=== PATIENT | male | born 1975 | race Caucasian/White ===

== ENCOUNTER 2017-06-15 16:16 | Emergency (ER) | payer OTHER ==
[~2017-06-15] VITALS: Ht 172.7 cm; Wt 77.1 kg
[~2017-06-15 16:16] MED LIST: ALBU.083IS IH; ALBU4 PO; ALBU8HFA2 INH; ALBU90OI INH; ALPR.25 PO; BUPR100 PO; BUPR150ER PO; BUPR75 PO; CHLO25 PO; CLIN300 PO; CLON.2 PO; DIPH50 PO; DIVA500EC PO; DIVA500ER PO; DOXY100 PO; ENOX40I PO; FAMO20 PO; HYDACE5 PO; IBUP800 PO; LISHYD2012 PO; Naprosyn500 MG PO; Norco 5-325 Ta1 EACH PO; OXYACE5T PO; PRED20 PO; PROM25 PO; QVAR7.3 G1; QVAR7.3 G1 INH; Vistaril25 MG PO
[2017-07-13] MEDS ORDERED: HYDR1TAB94 PO (08:36)
== END 2017-06-15 17:48 | disposition home or self-care (01) ==
LOC: ER 16:16
DX: S70.02XA Contusion of left hip, initial encounter (principal); S90.02XA Contusion of left ankle, initial encounter; Z88.5 Allergy status to narcotic agent; Z79.899 Other long term (current) drug therapy; I10 Essential (primary) hypertension; Z87.891 Personal history of nicotine dependence; V13.4XXA Pedal cycle driver injured in collision with car, pick-up truck or van in traffic accident, initial encounter
CPT/HCPCS: 73502; 73610; 99284

== ENCOUNTER 2017-06-19 17:47 | Emergency (ER) | payer OTHER ==
[~2017-06-19] VITALS: Ht 147.3 cm; Wt 160.0 kg
[2017-06-19] MEDS ORDERED: IBUP800 PO (18:56)
[2017-07-13] MEDS ORDERED: HYDR1TAB94 PO (08:36)
== END 2017-06-19 19:14 | disposition home or self-care (01) ==
LOC: ER 17:47
DX: S62.311A Displaced fracture of base of second metacarpal bone, left hand, initial encounter for closed fracture (principal); I10 Essential (primary) hypertension; Z88.5 Allergy status to narcotic agent; Z87.891 Personal history of nicotine dependence; Y04.2XXA Assault by strike against or bumped into by another person, initial encounter
CPT/HCPCS: 29125; 71046; 73130; 73610; 99283

== ENCOUNTER 2017-06-26 12:07 | Day surgery (SDC) | payer OTHER ==
[~2017-06-26] VITALS: Ht 175.3 cm; Wt 85.1 kg
[2017-07-13] MEDS ORDERED: HYDR1TAB94 PO (08:36)
== END 2017-06-26 17:49 | disposition home or self-care (01) ==
LOC: ORSCSDS 12:07
PROVIDERS: Orthopaedic Surgery
PROC: 0PSQ04Z Reposition Left Metacarpal with Internal Fixation Device, Open Approach (ICD-10-PCS; principal; 2017-06-26 14:45)
DX: S62.331A Displaced fracture of neck of second metacarpal bone, left hand, initial encounter for closed fracture (principal); I10 Essential (primary) hypertension; J45.909 Unspecified asthma, uncomplicated; F17.210 Nicotine dependence, cigarettes, uncomplicated; Z79.899 Other long term (current) drug therapy
CPT/HCPCS: J0690; J1100; J3010; J7120

== ENCOUNTER 2017-07-07 12:02 | Emergency (ER) | payer OTHER ==
[~2017-07-07] VITALS: Ht 175.3 cm; Wt 83.9 kg
[2017-07-07] MEDS ORDERED: Ventolin/Prove6.7 GM INH (12:16)
[2017-07-07] MEDS ORDERED: IBUP800 PO (12:17)
[2017-07-07] MEDS ORDERED: Norco 7.5-3251 EACH PO (13:40)
[2017-07-07] MEDS ORDERED: Zofran Odt4 MG SL (13:40)
[2017-07-07] MEDS ORDERED: Crutch1 EACH UD (13:42)
[2017-07-13] MEDS ORDERED: HYDR1TAB94 PO (08:36)
== END 2017-07-07 14:18 | disposition home or self-care (01) ==
LOC: ER 12:02
DX: S82.841A Displaced bimalleolar fracture of right lower leg, initial encounter for closed fracture (principal); I10 Essential (primary) hypertension; F17.200 Nicotine dependence, unspecified, uncomplicated; Z88.5 Allergy status to narcotic agent; X50.1XXA Overexertion from prolonged static or awkward postures, initial encounter; Y93.72 Activity, wrestling
CPT/HCPCS: 27810; 73610; 96372; 99284; J1170

== ENCOUNTER 2017-07-17 09:45 | Day surgery (SDC) | payer OTHER ==
[~2017-07-17] VITALS: Ht 172.7 cm; Wt 79.1 kg
[~2017-07-17 09:45] MED LIST changes: +Crutch1 EACH UD; +HYDR1TAB94 PO; +Norco 7.5-3251 EACH PO; +Ventolin/Prove6.7 GM INH; +Zofran Odt4 MG SL
== END 2017-07-17 14:36 | disposition home or self-care (01) ==
LOC: ORSCSDS 09:45
PROVIDERS: Orthopaedic Surgery
PROC: 0QSJ04Z Reposition Right Fibula with Internal Fixation Device, Open Approach (ICD-10-PCS; principal; 2017-07-17 11:15)
DX: S82.61XA Displaced fracture of lateral malleolus of right fibula, initial encounter for closed fracture (principal); F17.210 Nicotine dependence, cigarettes, uncomplicated
CPT/HCPCS: C1713; J0171; J0690; J2250; J2405; J3010

== ENCOUNTER 2018-04-05 21:56 | Emergency (ER) | payer OTHER ==
[~2018-04-05] VITALS: Ht 172.7 cm; Wt 86.2 kg
[2018-04-05] MEDS ORDERED: ERYT1OIN LEFTEYE (22:40)
[2018-04-05] MEDS ORDERED: ACULAR5 ML TOP (22:40)
== END 2018-04-05 23:11 | disposition home or self-care (01) ==
LOC: ER 21:56
DX: S05.02XA Injury of conjunctiva and corneal abrasion without foreign body, left eye, initial encounter (principal); I10 Essential (primary) hypertension; F17.200 Nicotine dependence, unspecified, uncomplicated; Z88.5 Allergy status to narcotic agent; X58.XXXA Exposure to other specified factors, initial encounter
CPT/HCPCS: 99283

== ENCOUNTER 2018-11-26 12:36 | Day surgery (SDC) | payer OTHER ==
[~2018-11-26] VITALS: Ht 172.7 cm; Wt 85.7 kg
[~2018-11-26 12:36] MED LIST changes: +ACULAR5 ML TOP; +ERYT1OIN LEFTEYE
--- NOTE | 2018-11-26 17:48 | NUR ---
Patient up to Ambulate independently. Gait steady. Discharge instructions reviewed with patient. Patient verbalizes understanding. Copy given to patient to take home. REVIEWED WITH MOTHER AND PT AFTER PT GIVES PERMISSION Patient States Post-Procedure ride home has been arranged. Discharged via wheelchair to private car for ride home.
== END 2018-11-26 18:20 | disposition home or self-care (01) ==
LOC: ER 12:36 → SURS 12:37 → ER 12:37 → ORSCMMR 14:25 → SURS 18:20
PROVIDERS: Orthopaedic Surgery
PROC: 0HQGXZZ Repair Left Hand Skin, External Approach (ICD-10-PCS; principal; 2018-11-26 14:30)
DX: S61.412A Laceration without foreign body of left hand, initial encounter (principal); S61.213A Laceration without foreign body of left middle finger without damage to nail, initial encounter; S61.215A Laceration without foreign body of left ring finger without damage to nail, initial encounter; I10 Essential (primary) hypertension; F17.210 Nicotine dependence, cigarettes, uncomplicated; J45.909 Unspecified asthma, uncomplicated; Z79.899 Other long term (current) drug therapy; Z88.5 Allergy status to narcotic agent; W29.3XXA Contact with powered garden and outdoor hand tools and machinery, initial encounter
CPT/HCPCS: 36415; 73130; 96365; 96375; 99285-25; J0330; J0690; J1100; J1170; J1885; J2250; J2405; J2704; J3010; J7120

== ENCOUNTER 2023-12-14 23:19 | Emergency (ER) | payer OTHER ==
[~2023-12-14] VITALS: Ht 175.3 cm; Wt 113.4 kg
[~2023-12-14 23:19] MED LIST changes: +ERYT.5TO RIGHTEYE
[2023-12-15] MEDS ORDERED: Diphth,Pertuss(Acell),Tet Vac 0.5 ML VIAL IM ONE (00:05)
[2023-12-15] MEDS ORDERED: Ketorolac Tromethamine 15mg Vial IM ONE (00:25)
[2023-12-15] MEDS ORDERED: ACET500 PO (01:55)
[2023-12-15] MEDS ORDERED: IBUP600 PO (01:55)
[2023-12-15 02:00] VITALS: BP 125/78
== END 2023-12-15 02:28 | disposition home or self-care (01) ==
LOC: ER 23:19
DX: S50.312A Abrasion of left elbow, initial encounter (principal); S59.912A Unspecified injury of left forearm, initial encounter; M25.552 Pain in left hip; M79.605 Pain in left leg; I10 Essential (primary) hypertension; F17.210 Nicotine dependence, cigarettes, uncomplicated; W18.30XA Fall on same level, unspecified, initial encounter
CPT/HCPCS: 73070; 73090; 73100; 73502; 73590; 90471; 90715; 96372; 99284-25; J1885

== ENCOUNTER 2024-02-12 14:10 | Emergency (ER) | payer OTHER ==
[~2024-02-12] VITALS: Ht 172.7 cm; Wt 107.0 kg
[~2024-02-12 14:10] MED LIST changes: +ACET500 PO; +IBUP600 PO
[2024-02-12 14:53] VITALS: BP 163/116
[2024-02-12] MEDS ORDERED: Acetaminophen 325 MG TABLET PO ONE (14:55)
[2024-02-12] MEDS ORDERED: Ketorolac Tromethamine 15mg Vial IM ONE (15:10)
== END 2024-02-12 16:39 | disposition home or self-care (01) ==
LOC: ER 14:10
DX: S69.91XA Unspecified injury of right wrist, hand and finger(s), initial encounter (principal); R07.81 Pleurodynia; W37.8XXA Explosion and rupture of other pressurized tire, pipe or hose, initial encounter; I10 Essential (primary) hypertension; F17.210 Nicotine dependence, cigarettes, uncomplicated
CPT/HCPCS: 29125; 71046; 73110; 73130; 96372-59; 99283-25; A9270; J1885

== ENCOUNTER 2024-07-22 13:23 | Inpatient (IN) | payer OTHER ==
[~2024-07-22] VITALS: Ht 172.7 cm; Wt 94.7 kg
[2024-07-22 14:18] LABS: BASOPHILS ABSOLUTE AUTO 0.05 K/mm3 (0.00-0.23); BASOPHILS PERCENT AUTO 1 % (0-2); EOSINOPHILS ABSOLUTE AUTO 0.09 K/mm3 (0.00-0.68); EOSINOPHILS PERCENT AUTO 1 % (0-6); Hematocrit 44.9 % (37.0-53.0); IMMATURE GRAN ABSOLUTE AUTO 0.04 K/mm3 (0.00-0.10); IMMATURE GRAN PERCENT AUTO 0 % (0-1); LYMPHOCYTES ABSOLUTE AUTO 1.68 K/mm3 (0.84-5.20); LYMPHOCYTES PERCENT AUTO 16 % (21-46); MONOCYTES ABSOLUTE AUTO 1.07 K/mm3 (0.16-1.47); MONOCYTES PERCENT AUTO 10 % (4-13); Mean Corpuscular HGB 31.7 pg (26.0-34.0); Mean Corpuscular HGB Conc 35.6 g/dL (31.5-36.5); Mean Corpuscular Volume 89 fL (80-100); Mean Platelet Volume 9.8 fL (9.1-12.4); NEUTROPHILS ABSOLUTE AUTO 7.55 K/mm3 (1.96-9.15); NEUTROPHILS PERCENT AUTO 72 % (41-73); Platelet Count 149 K/mm3 (150-400); RDW Coefficient Variation 13.8 % (11.7-14.2); RDW Standard Deviation 44.3 fL (35.1-46.3); Red Blood Cell Count 5.04 M/mm3 (4.30-5.90); White Blood Cell Count 10.48 K/mm3 (4.00-11.30)
[2024-07-22 14:31] LABS: Albumin, Blood 3.1 g/dL (3.4-5.0); Albumin/Globulin Ratio 0.9 (0.8-1.8); Bilirubin, Total 0.5 mg/dL (0.1-1.0); Bun/Creatinine Ratio 22.2 (12.0-20.0); Calcium, Blood 8.1 mg/dL (8.5-10.1); Creatinine, Blood 0.81 mg/dL (0.60-1.20); Globulin, Blood 3.5 g/dL (2.2-4.0); Potassium, Blood 3.7 mmol/L (3.5-5.5); Total Protein, Blood 6.6 g/dL (6.4-8.2)
[2024-07-22 16:05] LABS: International Normalized Ratio 0.99; Prothrombin Time Results 10.6 Sec (9.7-11.5)
[2024-07-22] MEDS ORDERED: Heparin Sodium,Porcine/0.5 NS 500 ML IV SCH (17:20)
[2024-07-22] MEDS ORDERED: Heparin Sodium 5000 Units/ML 1ML MDV IV ONE (17:20)
[2024-07-22] MEDS ORDERED: Ondansetron HCl 2 MG / ML 2ML Vial IV PRN (18:00)
[2024-07-22] MEDS ORDERED: Enoxaparin 100 MG/ML 1ML SYR SC SCH (18:00)
[2024-07-22 21:23] VITALS: BP 143/91
--- NOTE | 2024-07-22 23:23 | NUR ---
CALL FROM LAB TROPONIN IS NOW [phone] UP SINCE LAST DRAW. PROVIDER EDUCATIONAL AIDE NOTIFIED. PATIENT IS ASYMPTOMATIC AT THIS TIME. VSS
[2024-07-23] VITALS (7 sets, daily range): BP systolic 110–142; BP diastolic 82–103
[2024-07-23] MEDS ORDERED: Dose Adjust by Pharmacy XX STA ×2 (02:16→10:14)
[2024-07-23] MEDS ORDERED: Heparin Sodium 5000 Units/ML 1ML MDV IV ONE ×3 (02:20→18:50)
--- NOTE | 2024-07-23 05:11 | NUR ---
MR CHAU IS A NEW ADMISSION TO [facility]. CAME TO FLOOR FROM ER. COMES IN WITH PE AND DVT. PATIENT IS ON A HEPARIN DRIP. PATIENT STATES HE FEELS CHEST HEAVINESS WITH BREATHING. TROPONINS TREADING UP ALL NIGHT. GREENHOUSE SUPERINTENDENT NIGHT PROVIODER AWARE. TROPONINS TO BE DRAWN EVERY TWO HOURS. PATIENT HAS SLEPT MOST OF NIGHT EXCECPT FOR INTERRUPTIONS FROM STAFF. REMAINS ON ROOM AIR. CONTINUE CARE
[2024-07-23 05:46] LABS: Hematocrit 48.2 % (37.0-53.0); Hemoglobin 16.6 g/dL (13.5-17.5); Mean Corpuscular HGB 30.7 pg (26.0-34.0); Mean Corpuscular HGB Conc 34.4 g/dL (31.5-36.5); Mean Corpuscular Volume 89 fL (80-100); Mean Platelet Volume 10.3 fL (9.1-12.4); Platelet Count 122 K/mm3 (150-400); RDW Coefficient Variation 13.8 % (11.7-14.2); RDW Standard Deviation 44.6 fL (35.1-46.3); White Blood Cell Count 9.73 K/mm3 (4.00-11.30)
[2024-07-23 06:13] LABS: Alanine Aminotransfer (ALT/SGP 112 U/L (12-78); Albumin, Blood 3.1 g/dL (3.4-5.0); Albumin/Globulin Ratio 0.9 (0.8-1.8); Alk Phos 125 U/L (50-136); Anion Gap 8 mmol/L (3-11); Aspartate Aminotrans (AST/SGOT 131 U/L (12-37); Bilirubin, Total 0.9 mg/dL (0.1-1.0); Blood Urea Nitrogen 12 mg/dL (8-24); Bun/Creatinine Ratio 13.2 (12.0-20.0); CHOL/HDL RATIO 3.3; CO2, Blood 27 mmol/L (21-32); Calcium, Blood 8.2 mg/dL (8.5-10.1); Chloride, Blood 105 mmol/L (98-108); Cholesterol 201 mg/dL (50-200); Creatinine, Blood 0.91 mg/dL (0.60-1.20); Globulin, Blood 3.4 g/dL (2.2-4.0); Glomerular Filtration Rate 105 (60-); Glucose, Blood 98 mg/dL (70-99); HDL Cholesterol 61 mg/dL (>39); LDL/HDL RATIO 1.8; Low Density Lipoprotein Chol 110 mg/dL (0-110); Magnesium, Blood 1.9 mg/dL (1.6-2.4); Potassium, Blood 3.7 mmol/L (3.5-5.5); Sodium, Blood 136 mmol/L (136-145); Total Protein, Blood 6.5 g/dL (6.4-8.2); Triglycerides 149 mg/dL (30-160); Very Low Density Lipoprot Chol 29 mg/dL (6-32)
[2024-07-23 09:14] LABS: Anti-Xa UFH, PHA Monitoring 0.42 IU/mL
[2024-07-23 13:01] LABS: U Amphetamine Screen DETECTED; U Barbituate Screen Not Detected; U Benzodiazapine Screen Not Detected; U Buprenorphine Screen Not Detected; U Cannabinoids Screen Not Detected; U Cocaine Screen Not Detected; U Methadone Screen Not Detected; U Methamphetamine Screen DETECTED; U Opiates Screen Not Detected; U Oxycodone Screen Not Detected; U Phencyclidine Screen Not Detected
[2024-07-23] MEDS ORDERED: TraMADol HCl 50 MG Tab PO PRN (16:00)
[2024-07-23] MEDS ORDERED: Furosemide 10 MG / ML 2ML Vial IV SCH (18:00)
--- NOTE | 2024-07-23 20:31 | NUR ---
SHIFT SUMMARY PT AXO4 - PLEASANT/COOPERATIVE. VSS. ON HEPARIN GTT - TITRATED AT SHIFT CHANGE. PT ON RA, BREATH SOUNDS CLEAR T/O. EQUAL UN;LABORED RESPIRATIONS AT REST, DYSPNEA NOTED WITH EXERTION. PT CONTINENT. STATES HAVING "POISON OAK" TO BILAT ARMS/NO OPEN LESIONS NOTED TO ASSESMENT. AWAITING HEAD CT DUE TO NOT GETTING COMPLETED ON DAY SHIFT - PLAN TO FOLLOW UP WITH RADIOLOGY REGARDING THIS. PT CURRENTLY RESTING POST ASSESMENT.
--- NOTE | 2024-07-23 22:23 | NUR ---
HEAD CT RECEIVED HEAD CT REPORT. UPDATED DR FARRAR OF FINDINGS. DR TO REVIEW CHART AND MAKE CHANGES IF NECESSARY. PT TO BE UPDATED REGARDED FINDINGS VIA PHYSICIAN.
[2024-07-24] VITALS (7 sets, daily range): BP systolic 108–139; BP diastolic 64–103
[2024-07-24 01:56] LABS: BASOPHILS ABSOLUTE AUTO 0.05 K/mm3 (0.00-0.23); BASOPHILS PERCENT AUTO 1 % (0-2); EOSINOPHILS ABSOLUTE AUTO 0.09 K/mm3 (0.00-0.68); EOSINOPHILS PERCENT AUTO 1 % (0-6); Hemoglobin 16.3 g/dL (13.5-17.5); IMMATURE GRAN ABSOLUTE AUTO 0.07 K/mm3 (0.00-0.10); IMMATURE GRAN PERCENT AUTO 1 % (0-1); LYMPHOCYTES ABSOLUTE AUTO 2.34 K/mm3 (0.84-5.20); LYMPHOCYTES PERCENT AUTO 21 % (21-46); MONOCYTES ABSOLUTE AUTO 1.14 K/mm3 (0.16-1.47); MONOCYTES PERCENT AUTO 10 % (4-13); Mean Corpuscular HGB 31.5 pg (26.0-34.0); Mean Corpuscular HGB Conc 35.4 g/dL (31.5-36.5); Mean Corpuscular Volume 89 fL (80-100); Mean Platelet Volume 10.9 fL (9.1-12.4); NEUTROPHILS ABSOLUTE AUTO 7.33 K/mm3 (1.96-9.15); NEUTROPHILS PERCENT AUTO 67 % (41-73); Platelet Count 115 K/mm3 (150-400); RDW Coefficient Variation 13.6 % (11.7-14.2); Red Blood Cell Count 5.17 M/mm3 (4.30-5.90); White Blood Cell Count 11.02 K/mm3 (4.00-11.30)
[2024-07-24 01:57] LABS: Bun/Creatinine Ratio 14.5 (12.0-20.0); Calcium, Blood 8.2 mg/dL (8.5-10.1); Creatinine, Blood 0.83 mg/dL (0.60-1.20); Potassium, Blood 3.4 mmol/L (3.5-5.5)
[2024-07-24] MEDS ORDERED: Heparin Sodium 5000 Units/ML 1ML MDV IV ONE ×2 (02:20→09:15)
[2024-07-24] MEDS ORDERED: Dose Adjust by Pharmacy XX STA ×2 (02:20→09:13)
--- NOTE | 2024-07-24 05:07 | NUR ---
SHIFT SUMMARY NO ACUTE CHANGES POST ASSUMPTION NOTE. VSS. HEAD CT COMPLETED. HEPARIN GTT HAS HAD TO BE TITRATED PER PHARMACY/ W/O INCIDENT. PT REMAINS ON RA. CONTINENT. HAS SNACKED T/O NIGHT. CIWAS NEGATIVE. REMAINS PLEASANT/COOPERATIVE. BED ALARM ON. CALL LIGHT WITHIN REACH.
[2024-07-24] MEDS ORDERED: Benzonatate 100 MG Cap PO PRN (10:25)
--- NOTE | 2024-07-24 10:29 | NUR ---
TO ROUND: MD ROUNDED AND TALKED TO PATIENT ABOUT MEDICATION CHANGES & LOOKING AT POSSIBLE DISCHARGE TOMORROW. WILL CONTINUE TO DIURES AND PATIENT IS TO BE ON A FLUID RESTRTICTION, PATIENT AND FAMILY AWARE. PLAN WILL BE TO WALK TO BATHROOM & AROUND THE UNIT IF HE TOLERATES IT.
[2024-07-24] MEDS ORDERED: Rivaroxaban 10 MG Tab PO SCH (10:30)
[2024-07-24] MEDS ORDERED: Aspirin 81 MG Chew PO SCH (11:00)
[2024-07-24] MEDS ORDERED: Metoprolol Tartrate 25 MG Tab PO SCH (11:00)
[2024-07-24] MEDS ORDERED: Famotidine 20 MG Tab PO SCH (11:00)
[2024-07-24] MEDS ORDERED: Losartan Potassium 25 MG Tab PO SCH ×2 (11:00→17:00)
--- NOTE | 2024-07-24 14:58 | NUR ---
MD CALLED: PT REPORTED FEELING ITCHY AND THERES SOME REDNESS TO WHERE HIS LEFT AC IV WAS, MD WAS CALLED TO GET SOME MEDICATIONS TO HELP WITH THAT. MD TO PLACE ORDERS. AN ICE PACK WAS GIVEN TO PATIENT IN THE MEANTIME.
--- NOTE | 2024-07-24 16:43 | NUR ---
MD CALLED: THIS RN CALLED MD REGARDING PATIENTS ELEVATED BLOOD PRESSURE AND SLIGHT FEVER,MD TO ADD NEW MEDICATIONS. MD AWARE THAT PATIENT WOULD LIKE TO GO HOME BUT STATED TOMORROW DUE TO HIS ELEVATED BLOOD PRESSURE, PATIENT NOTIFIED OF THAT.
[2024-07-24] MEDS ORDERED: ALPRAZolam 0.25 MG Tab PO PRN (16:45)
[2024-07-24] MEDS ORDERED: Chlorpheniramine/Hydroc Polistir 5 ML UDC PO PRN (16:50)
--- NOTE | 2024-07-24 17:10 | NUR ---
SHIFT SUMMARY: PATIENT IS ALERT AND ORIETNED X4 & COOPERATIVE WITH HIS CARE. IS ABLE TO MAKE NEEDS KNOWN & USES CALL LIGHT APPROPIRATLEY. PATIENT IS ON TELE SHOWING SINUS RYTHM TO SINUS TACH 90-120'S. IS SATTING >92% ON ROOM AIR, DOES GET SHORT OF BREATH WITH EXERTION AND OFTEN TIMES HOLDS HIS BREATH WHEN HE HAS BOUTS OF PAIN. PATIENT OCCASIONALLY HAS CHEST PAIN WHEN COUGHING & A SHARP PAIN IN HIS OCCIPITAL REGION. MEDICATIONS WERE ADDED AND PAIENT TAUGHT TO SPLINT WHEN COUGHING. PATIENT HAD FAMILY THROUGHOUT THE SHIFT AT BEDSIDE. PATIENT IS ANXIOUS AT TIMES AND WOULD LIKE TO GO HOME, WAS EDUCATED THAT MD WOULD LIKE TO KEEP HIM UNITL TOMORROW MORNING WITH THE ELVATED TEMPERATURE AND BLOOD PRESSURE AT TIMES. HYDROCORTISONE CREAM WAS ADDED FOR THE BILATERAL FOREARM POSION OAK THAT PATIENT HAS. PATIENT HAS CALL LIGHT WITHIN REACH, BED IN LOWEST POSITION AND STATING THAT NOTHING IS NEEDED AT THIS TIME.
[2024-07-24] MEDS ORDERED: Atorvastatin 40 MG Tab PO SCH (18:00)
[2024-07-24] MEDS ORDERED: Hydrocortisone 1% Ointment 30 GM Tube TOP SCH (21:00)
[2024-07-24 23:18] LABS: HOMOCYSTEINE, TOTAL 15 umol/L (0-15)
[2024-07-25] MEDS ORDERED: OxyCODONE HCL 5 MG TAB PO PRN (01:00)
--- NOTE | 2024-07-25 01:09 | NUR ---
REFERRAL AGENT NOTIFIED THIS RN THAT PT IS IN TRIGEMINY. NO CHANGE IN PT CONDITION. CHARGE AND MD NOTIFIED. SEE NEW ORDER.
[2024-07-25 03:56] VITALS: BP 127/73
[2024-07-25] MEDS ORDERED: Acetaminophen 325 MG TABLET PO PRN (04:25)
--- NOTE | 2024-07-25 04:26 | NUR ---
PT HAS FEVER OF 101.7, NOTIFIED, TYLENOL ORDERED. PT FOUND TO BE HAVING BRIEF APNEIC EPISODES WHILE SLEEPING RESULTING IN DESATTING TO 87-89%, BUT RECOVERS IMMEDIATLEY ONCE HE RESUMES BREATHING. PT CURRENTLY ON 2L NC AND SATTING ABOVE 95%.
[2024-07-25 04:54] LABS: B2GLYCOPROTEIN 1, IGG ANTIBODY <10 SGU (<=20); B2GLYCOPROTEIN 1, IGM ANTIBODY <10 SMU (<=20)
[2024-07-25 05:24] LABS: CARDIOLIPIN ANTIBODY IGG <10 GPL (<=14); CARDIOLIPIN ANTIBODY IGM <10 MPL (<=12)
--- NOTE | 2024-07-25 05:45 | NUR ---
SHIFT SUMMARY - PT SLEPT THROUGH MOST OF SHIFT, BUT EASILY AROUSABLE. A/OX4, PLEASANT, COOPERATIVE WITH CARE, VERBALIZES NEEDS. REPORTED INTERMITTENT PAIN UP TO 10/10 IN BILAT KNEES. ON RA MOST OF THE NIGHT, BUT BEGAN HAVING BRIEF APNEIC EPISODES AND DESATTING INTO HIGH 80'S MOMENTARILY WITH QUICK RECOVERY ONCE BREATHING RESUMED. PT CURRENTLY ON 2L, SATS ABOVE 90%. RR HIGH 20'S. IN TRIGEMINY, HR 90'S-100'S, BP STABLE. PT HAS FEVER, BLANKETS REMOVED, ICE PACK APPLIED, TYLENOL GIVEN. PT HAS MOTTLING ON BLE. PULSES PALPABLE. CONTINENT OF URINE AND STOOL, ONE UNMEASURED VOID IN TOILET. PT ON 1500ML FLUID RESTRICTION AND TOLERATING WELL. PLAN TO DC HOME TODAY.
[2024-07-25 06:17] LABS: BASOPHILS ABSOLUTE AUTO 0.06 K/mm3 (0.00-0.23); BASOPHILS PERCENT AUTO 1 % (0-2); EOSINOPHILS ABSOLUTE AUTO 0.04 K/mm3 (0.00-0.68); EOSINOPHILS PERCENT AUTO 0 % (0-6); Hematocrit 45.2 % (37.0-53.0); Hemoglobin 16.1 g/dL (13.5-17.5); IMMATURE GRAN ABSOLUTE AUTO 0.14 K/mm3 (0.00-0.10); IMMATURE GRAN PERCENT AUTO 2 % (0-1); LYMPHOCYTES ABSOLUTE AUTO 1.13 K/mm3 (0.84-5.20); LYMPHOCYTES PERCENT AUTO 12 % (21-46); MONOCYTES ABSOLUTE AUTO 0.55 K/mm3 (0.16-1.47); MONOCYTES PERCENT AUTO 6 % (4-13); Mean Corpuscular HGB 31.4 pg (26.0-34.0); Mean Corpuscular HGB Conc 35.6 g/dL (31.5-36.5); Mean Corpuscular Volume 88 fL (80-100); Mean Platelet Volume 10.9 fL (9.1-12.4); NEUTROPHILS ABSOLUTE AUTO 7.31 K/mm3 (1.96-9.15); NEUTROPHILS PERCENT AUTO 79 % (41-73); Platelet Count 124 K/mm3 (150-400); RDW Coefficient Variation 13.6 % (11.7-14.2); RDW Standard Deviation 43.8 fL (35.1-46.3); Red Blood Cell Count 5.13 M/mm3 (4.30-5.90); White Blood Cell Count 9.23 K/mm3 (4.00-11.30)
[2024-07-25 06:20] LABS: Bun/Creatinine Ratio 16.8 (12.0-20.0); Calcium, Blood 8.3 mg/dL (8.5-10.1); Creatinine, Blood 1.13 mg/dL (0.60-1.20); Magnesium, Blood 1.6 mg/dL (1.6-2.4); Potassium, Blood 3.8 mmol/L (3.5-5.5)
--- NOTE | 2024-07-25 07:39 | NUR ---
ASSUMPTION NOTE: THIS RN TO ASSUME CARE OF PATIENT. PATIENT IS AWAKE IN BED. VITAL SIGNS STABLE AND NO LONGER RUNNING A FEVER. PATIENT STATES HE WOULD STILL LIKE TO GO HOME TODAY. AT BEDSIDE. PATIENT DENIED CHEST PAIN/PRESSURE. IS ON 2 LITERS VIA NASAL CANNULA PLACED LAST NIGHT DUE TO STOP BREATHING A COUPLE TIMES LAST NIGHT PER REPORT. HAS CALL LIGHT WITHIN REACH & BED IN LOWEST POSITION.
[2024-07-25 08:07] VITALS: BP 114/73
[2024-07-25] MEDS ORDERED: Empagliflozin 10 MG TAB PO SCH (09:00)
--- NOTE | 2024-07-25 09:38 | NUR ---
MD AT BEDSIDE: MD AT BEDSIDE, BLOOD CULTURES ADDED AND PATIENT AGREEABLE TO STAY ONE MORE NIGHT FOR FURTHER EVALUATION.
[2024-07-25 10:03] LABS: ANTITHROMBIN, ENZYM (ACTIVITY) 115 % (76-128)
[2024-07-25 11:42] VITALS: BP 111/69
[2024-07-25] MEDS ORDERED: Lidocaine HCl 4% Cream 5 GM TOP SCH (12:00)
[2024-07-25] MEDS ORDERED: Thiamine HCl 100 MG Tab PO SCH (12:00)
[2024-07-25] MEDS ORDERED: Folic Acid 1 MG TAB PO SCH (12:00)
[2024-07-25 12:58] LABS: PROTEIN S AG FREE 110 % (74-147)
[2024-07-25 14:32] LABS: PROTEIN C FUNCTIONAL 159 % (83-168)
--- NOTE | 2024-07-25 14:34 | NUR ---
MD CALLED: THIS RN CALLED MD REGARDING PATIENT HAVING A COUGHING FIT AND NOT ABLE TO HAVE SOME MORE COUGH MEICATIONS PER EMAR. MD ORDERS GIVEN AND TO BE PLACED.
[2024-07-25] MEDS ORDERED: Morphine Sulfate 20 MG/1ML 1 ML Oral Syringe PO ONE (14:40)
[2024-07-25 15:41] LABS: APC RESISTANCE 3.29 (>=2.00); FACTOR V LEIDEN BY PCR Not Done; FACV REF SPECIMEN Not Done
[2024-07-25 16:09] VITALS: BP 108/9
--- NOTE | 2024-07-25 17:07 | NUR ---
SHIFT SUMMARY: PATIENT IS ALERT AND ORIENTED X4 & ACTIVE IN HIS CARE, IS ABLE TO MAKE NEEDS KNOWN & USES CALL LIGHT APPROPRIATELY. PATIENT IS ON TELE SHOWING SINUS RYTHM TO OCCASIONALY SINUS TACH WITH TRIGENIMNY AT TIMES. SATTING >92% ON ROOM AIR AND FOR PATIENT COMFORT 2 LITERS VIA NASAL CANNULA. PATIENT DOES TEND TO HOLD HIS BREATH WHEN IN PAIN AND OCCASIONALLY WHEN HE IS SLEEPING. A NOCTURAL O2 STUDY TO BE DONE TONIGHT, PATIENT AWARE. PATIENT DID NOT A FEVER THROUGHOUT SHIFT. HAD GOOD OUTPUT, THROUGHOUT SHIFT AND CONTINUES TO BE ON A FLUID RESTRICTION. FAMILY AT BEDSIDE THROUGHOUT SHIFT. HAD A COUGH AND WAS GIVEN ROXANOL PER EMAR DUE TO SHARP OCCIPITAL PAIN, NO CHEST PAIN WHEN COUGHING WHICH IS AN IMPROVEMENT. PATIENT SKIN CONTINEUS TO BE RED & AMINA, NEW LIDICONE JELLY WAS ADDED FOR THE KNEES DUE TO PATIENT REPORTING THEY FEE LIKE THEY ARE ON FIRE. PATIENT COOPERATIVE TO STAY ANOTHER NIGHT AND POSSIBLY LOOKING AT DISCHARGE TOMROROW. BLOOD CULTURES WERE SENT THIS MORNING AWAITING RESULTS. PATIENT HAS CALL LIGHT WITHIN REACH, BED IN LOWEST POSITION & CALL AND STATING NOTHING IS NEEDED AT THIS TIME.
[2024-07-25 19:55] VITALS: BP 116/87
[2024-07-25 19:58] LABS: ANTI-XA QUALITATIVE INTERP Present (Not Present); ANTICOAG MEDICATION NEUTRALIZ Hepzyme (Not Performed); DRVVT 1:1 MIX RATIO Not Performed (<=1.20); DRVVT CONFIRMATION RATIO Not Performed (<=1.20); DRVVT SCREEN RATIO 1.18 (<=1.20); HEXAGONAL PHOSPHOLIPID CONFIRM Not Performed s (<=7.9); NEUTRALIZED DRVVT SCREEN RATIO Not Performed (<=1.20); NEUTRALIZED PTT-LA RATIO 0.89 (<=1.20); PROTHROMBIN TIME (PT) 13.6 s (12.0-15.5); PTT-LA RATIO 2.61 (<=1.20); THROMBIN TIME (TT) >150.0 s (<=19.5)
[2024-07-25 23:45] VITALS: BP 105/85
[2024-07-26 04:45] VITALS: BP 104/72
--- NOTE | 2024-07-26 05:21 | NUR ---
SHIFT SUMMARY PT A/OX4, PLEASANT, COOPERATIVE WITH CARE, FOLLOWS COMMANDS, PT DENIED NEED FOR TOPICAL PAIN MEDICATION FOR KNEES. ON TELEMETRY, SINUS RHYTHM WITH HR IN 80 S. PT DENIED CHEST PAIN/PRESSURE. MOTTLING NOTED ON BONY PROMINENCES/JOINTS. MD AWARE PER DAY SHIFT RN. RADIAL/PEDAL PULSES PALPABLE. PT ON RA, SATS ABOVE 90%, HOWEVER PT HAS APNEIC EPISODES WHILE SLEEPING FOR AROUND 10 SECONDS BEFORE RESUMING BREATHING AND RECOVERING, SATTING ABOVE 90%. PT PARTICIPATED IN SLEEP STUDY TONIGHT. SLEEP STUDY EXPLAINED BY THIS RN AND RESPIRATORY THERAPIST TO THE PT. PT WAS AWAKE FOR MAJORITY OF SLEEP STUDY, BUT WAS ABLE TO SLEEP BRIEFLY. DESATURATION NOTED DURING SLEEP INTO HIGH 80 S. SLEEP STUDY IN CHART. PT AMBULATING INDEPENDENTLY IN ROOM, GOOD OUTPUT, STILL ON 1500 ML FLUID RESTRICTION AND TOLERATING WELL. FAMILY AT BEDSIDE.
[2024-07-26 07:47] VITALS: BP 113/72
[2024-07-26] MEDS ORDERED: Losartan Potassium 25 MG Tab PO SCH (09:00)
[2024-07-26] MEDS ORDERED: Furosemide 20 MG Tab PO SCH (09:00)
[2024-07-26] MEDS ORDERED: CefTRIAXone Sodium 2,000 MG in NS 100 ML IV SCH (10:00)
[2024-07-26] MEDS ORDERED: Vancomycin HCL 2,500 MG in NS 500 ML IV SCH (13:00)
[2024-07-26] MEDS ORDERED: ChlordiazePOXIDE 25 MG Cap PO PRN (13:30)
[2024-07-26] MEDS ORDERED: LORazepam 2 MG/ML 1ML Injection IV PRN (13:30)
--- NOTE | 2024-07-26 15:10 | NUR ---
UPDATE: PT DIAPHORETIC, WARM TO TOUCH. PT COMPLAINING OF MILD NAUSEA. THIS RN QUESTIONED PT ON ALCOHOL CONSUMPTION. PT STATES "I DRINK ALOT". CALL PLACED TO MD WITH CONCERN OF ALCOHOL WITHDRAWL. NEW ORDERS RECEIVED, SEE EMAR.
[2024-07-26 15:25] VITALS: BP 125/88
--- NOTE | 2024-07-26 17:15 | NUR ---
HOTEL DINING ROOM CASHIER SHIFT SUMMARY: PATIENT IS ALERT AND ORIENTED X 4, ABLE TO FOLLOW COMMANDS AND MAKE NEEDS KNOWN. PATIENT WITH INFARCT TO OCCIPITAL LOBE THIS ADMISSION, EXPERIENCING DECREASED VISION IN LEFT EYE. STRENGTH IS EQUAL THROUGHOUT, NO DEFICITS NOTED. PATIENT IS ON TELEMETRY, NSR 80'S, SBP >100, DENIES PRESENCE OF CHEST PAIN AND/OR PRESSURE. PATIENT ON 2L VIA NC, SPO2 >90%, INTERMITTENT NONPRODUCTIVE COUGH NOTED. MOTTLING IS NOTED ON RIGHT LOWER EXTREMITY. LEFT LOWER EXTREMITY IS RED, WARM, AND PAINFUL TO TOUCH, MD NOTIFIED, NEW ORDERS RECEIVED. PATIENT REPORTS HISTORY OF SMOKING, ILLICIT DRUG USE, AND ETOH USE. PATIENT BECAME DIAPHORETIC, ANXIOUS, AND UNCOMFORTABLE THIS AFTERNOON. MD CONTACTED REGARDING CONCERN FOR ETOH WITHDRAWAL, ETOH ORDERS GIVEN, SYMPTOMS IMPROVED BY END OF SHIFT. CALL LIGHT WITHIN REACH. WILL REPORT TO ONCOMING RN.
[2024-07-26 20:04] VITALS: BP 127/82
[2024-07-27] VITALS (7 sets, daily range): BP systolic 110–121; BP diastolic 64–86
[2024-07-27] MEDS ORDERED: Vancomycin HCL 1,500 MG in NS 250 ML IV SCH
[2024-07-27 05:15] LABS: ANTI-NUCLEAR AB ANA,IGG ELISA None Detected (None Detected)
--- NOTE | 2024-07-27 05:58 | NUR ---
SHIFT SUMMARY PATIENT A&O X4 WITH MODERATE ANXIETY SHOWN. PATIENT MEDICATED PER EMAR FOR ETOH WITHDRAWAL. MOTTLINGON RIGHT LEG IS UNCHANGED. CELLULITIS ON LEFT LEG IS UNCHANGED. SIGNIFICANT OTHER AT BEDSIDE. WILL CONTINUE TO MONITOR.
--- NOTE | 2024-07-27 11:01 | NUR ---
UPDATE THIS RN TO PT ROOM AFTER CRADLE PLACER INFORMED THIS RN THAT PT WAS DEMANDING TO GO OUTSIDE. THIS RN INFORMED PT THAT HE WAS BEING MONITORED WITH TELE AND THAT THE TELE DOES NOT WORK OUT OF HOSPITAL. PT DEMANDED TO HAVE THE TELE TAKEN OFF AND TO ALLOW HIM OUTSIDE. PT STATED THAT IF HE IS NT ALLOWED TO GO OUTSIDE FOR FRESH AIR, THAT HE WOULD LEVE AND HAV HIS SIGNIFICAN OTHER TAKE HIM TO ANOTHER HOSPITAL. SIGNIFICANT OTHER AGREEABLE THO TAKE PT IF HE LEAVES. THIS RN INFORMED PT THAT HE IS A HIGH RISK OF FURTHER AILMENTS AND POSSIBLE IF HE WERE TO LEAVE. THIS RN ALSO INFORMED PT THAT THIS RN WILL CONTACT MD ABOUT REQUEST, MD LAZAR. INSTRUCTED THI TN THAT IF PT IS NOT ALLOWED TO GO OUTSIDE THEN AMA PAPERWORK NEEDS TO BE PROVIDED TO PT IF HE CONTINUES TO DEMAND TO LEAVE. THIS RN AGAIN INFORMED PT OF RISKS OF LEAVING. COMMERCIAL PARTS PROFESSIONAL ALSO TO PT ROOM AND INFROMED T OF HIS HEALTH STATUS AND RISKS. PT CURRENTLY AGREEABLE TO STAY.
--- NOTE | 2024-07-27 15:28 | NUR ---
UPDATE PT EXPRESS ANIETY RELATED TO HIS STAY AT THE [facility]. ASKED ABOUT HIS PLAN OF CARE. PT AND SIGNIFICANT OTHER UPDATED ON MD NOTES AND RECOMMENDATIONS AND PLAN OF CARE. PT EMOTHIONAL ABOUT NEEDING TO STAY AT THE HOSPITAL. THIS RN THERAPEUTICALLY LISTENED TO CONCERNS.PT REASSURED THAT OTHER HOSPITALS WOULD BE DOING THE SAME PROCESSES IF HE WERE TP LEAVE AND GO TO ANOTHER HOSPITAL AFTER PT MADE REMARKS OF WANTING TO GOT TO ANOTHER HOSPITAL. PT VERBALIZED UNDERSTANDING OF PLAN OF CARE, WILL CONTINUE TO TO EDUCATE PT AND UPDATE.
--- NOTE | 2024-07-27 17:01 | NUR ---
SHIFT SUMMARY PT A/OX4 AND MOSTLY COOPERATIVE OF CARE. PT ABLE TO EXPRESS NEEDS AND CALLED APPROPISTELY. PT DID ENDORSE ANXIETY RELATED TO BEING THE HOSPITAL, STATED THAT E WAS WANTING TO LEAVE AMA AT ONE POINT IN SHFT. PT AGREEABLE TO STAY AT THIS POINT AFTER DISCUSSION WITH THIS RN ABOUT PT'S STATUS AND RISKS. PT INDEPENDENT IN BED. PT VSS THROUGHOUT SHIFT WITH O2 SATS IN THE 90'S ON RA. NO REPORT OF CHEST AIN/PRESSURE THROUGHOUT SHIFT. NO REPORT OF SO/DYSPNEA THROUGHOUT SHIFT. PT DID HAVE SOME VOMITTING TODAY, TREATED PER EMAR TOMAS'S DOING PRN, EE CHART FOR FALUES, TREATED PER EMAR.
--- NOTE | 2024-07-28 03:47 | NUR ---
LATE ENTRY PT ANXIOUS AT START OF SHIFT. S/O AT BEDSIDE. PTS BROTHERS TO BEDSIDE TO VISIT. THIS RN WENT INTO PTS ROOM FOR HOURLY ROUNDING. AT THIS TIME PTS BROTHER ADVISING THAT THEY WERE GOING TO LEAVE AND GO TO [facility]. ADVISED PT AND FAMILY THAT HE LINDA BE LEAVING AGAINST MEDICAL ADVICE. EDUCATED PT AND FAMILY ON RISKS OF LEAVING BUT IF THAT WAS HIS WISH I WOULD CALL THE MD AND GET THE PAPERWORK TO LEAVE AMA. THIS RN WENT TO DISCUSS WITH CHARGE NURSE. MD NOTIFIED. AT THIS TIME TELE NOTIFIED ME PT WAS NO LONGER ON TELE. THIS RN AND CHARGE WENT INTO PTS ROOM. PT AND FAMILY EXPRESSED FRUSTRATIONS AND DESIRE TO GO RECEIVE CARE ELSEWHERE. PTS BROTHER EXPRESSED THAT HE FELT THIS RN AND CHARGE NURSE DID NOT KNOW ANYTHING AND THAT THE DOCTORS DID NOT GIVEN ANY INFORMATION TO PT. PT AND FAMILY EDUCATED WHY PATIENT WAS HERE AND WHAT THE PLAN WAS. PT ALSO EXPRESSED FRUSTRATIONS ANF FEELING IF HE WAS NOT INFORMED ABOUT HIS CARE AND HAD POOR COMMUNICATION WITH DOCTORS. AT THIS TIME PT ALSO STATED "THIS THING IS OFF AND I COULD HAVE WITHOUT YOU KNOWING" (PT REFERRING TO HEART MONITOR) THIS RN ADVISED PT THAT I HAD CAME INTO THE ROOM ONCE THE MONITOR HAD SHOWED HE WAS NO LONGER ON TELE. AMA PAPERWORK FILLED OUT, AT THIS TIMED LONG CONVERSATION AND EDUCATION HAD BEEN PROVIDED TO PT AND FAMILY. PT AND FAMILY DECIDED THEY WANTED TO DISCUSS THE DECSION LONGER AND WOULD CALL ONCE DECIDED. THIS RN WENT TO CHECK ON PT AGIAN. PT AND S/O IN ROOM AT THIS TIME. PT DECIDED TO STAY. PT EXPRESSED HE WAS JUST FRUSTERATED AND FELT IF HE DID NOT HAVE GOOD COMMUNICATION WITH DOCTORS AND WAS OUT OF THE LOOP OF WHAT WAS HAPPENING WITH HIS CARE. REASSURED PT HIS FEELINGS WERE VALID AND APOLIGIZED THAT HE FELT THAT WAY. EDUCATED PT AGIAN ON PLAN OF CARE. PT RESTING IN ROOM AT THIS TIME.
[2024-07-28 04:06] VITALS: BP 112/70
[2024-07-28 04:56] LABS: BASOPHILS ABSOLUTE AUTO 0.05 K/mm3 (0.00-0.23); BASOPHILS PERCENT AUTO 1 % (0-2); EOSINOPHILS ABSOLUTE AUTO 0.24 K/mm3 (0.00-0.68); EOSINOPHILS PERCENT AUTO 3 % (0-6); Hematocrit 42.6 % (37.0-53.0); Hemoglobin 14.7 g/dL (13.5-17.5); IMMATURE GRAN ABSOLUTE AUTO 0.08 K/mm3 (0.00-0.10); IMMATURE GRAN PERCENT AUTO 1 % (0-1); LYMPHOCYTES ABSOLUTE AUTO 1.87 K/mm3 (0.84-5.20); LYMPHOCYTES PERCENT AUTO 25 % (21-46); MONOCYTES ABSOLUTE AUTO 1.06 K/mm3 (0.16-1.47); MONOCYTES PERCENT AUTO 14 % (4-13); Mean Corpuscular HGB Conc 34.5 g/dL (31.5-36.5); Mean Corpuscular Volume 90 fL (80-100); Mean Platelet Volume 10.4 fL (9.1-12.4); NEUTROPHILS ABSOLUTE AUTO 4.19 K/mm3 (1.96-9.15); NEUTROPHILS PERCENT AUTO 56 % (41-73); Platelet Count 202 K/mm3 (150-400); RDW Coefficient Variation 13.5 % (11.7-14.2); RDW Standard Deviation 44.3 fL (35.1-46.3); Red Blood Cell Count 4.74 M/mm3 (4.30-5.90); White Blood Cell Count 7.49 K/mm3 (4.00-11.30)
[2024-07-28 05:21] LABS: Albumin, Blood 2.7 g/dL (3.4-5.0); Albumin/Globulin Ratio 0.7 (0.8-1.8); Bilirubin, Total 0.3 mg/dL (0.1-1.0); Bun/Creatinine Ratio 17.7 (12.0-20.0); Calcium, Blood 8.2 mg/dL (8.5-10.1); Creatinine, Blood 0.9 mg/dL (0.60-1.20); Globulin, Blood 4.1 g/dL (2.2-4.0); Potassium, Blood 4.1 mmol/L (3.5-5.5); Total Protein, Blood 6.8 g/dL (6.4-8.2)
--- NOTE | 2024-07-28 06:13 | NUR ---
SHIFT SUMMARY PT A&O X4, ANXIOUS AT TIMES. HR IN THE 60'S-70'S, SR, DENIES CP/PRESSURE, NUMB/TINGLING, SBP STABLE. O2 >90% ON RA-2L VIA NC. PT REPORTS INTITMITTENT SOB, WORSE WITH EXERTION. PT HAS URINAL AT BEDSIDE, USES APRROPRIATELY. PT RESTED IN BED T/O NIGHT. NO ACUTE CHANGES. PT DENIES QUESTIONS OR CONCERNS AT THIS TIME. CALL LIGHT IN REACH. WILL MONITOR PT AND REPORT TO ONCOMING RN.
[2024-07-28 08:27] VITALS: BP 126/91
[2024-07-28] MEDS ORDERED: Nicotine 21 MG PATCH TOP SCH (09:00)
[2024-07-28 11:03] VITALS: BP 107/75
[2024-07-28 11:52] LABS: PROTHROMBIN F2 G20210A VARIANT Negative; PT PCR SPECIMEN Whole Blood
[2024-07-28] MEDS ORDERED: CeFAZolin Sodium 2,000 MG in NS 100 ML IV SCH (16:00)
[2024-07-28 16:20] VITALS: BP 109/74
--- NOTE | 2024-07-28 17:18 | NUR ---
SHIFT SUMMARY PATIENT ALERT, ORIENTED x4. ABLE TO MAKE NEEDS KNOWN. PERIODS OF ANXIETY THIS SHIFT, MEDICATED PER EMAR. PATIENT ATTEMPTED TO LEAVE AMA, BUT WAS WILLING TO STAY AFTER SPEAKING WITH THIS RN AND HOSPITALIST. BP STABLE. ON RA WITH SPO2 >90%. ON TELE, SR-ST. PATIENT STAND BY ASSIST IN THE ROOM. OCCASIONAL INCONTINENCE. TOLERTING PO. OTHERWISE, NO CHANGES. WILL REPORT TO SENIOR WINDOWS ENGINEER RN.
[2024-07-28 20:40] VITALS: BP 107/69
[2024-07-28 23:45] VITALS: BP 98/61
--- NOTE | 2024-07-29 04:21 | NUR ---
PT CALM AND COOPERATIVE, PRN COUGH MEDICATION AND ANTI-ANXIETY MEDICATION (REFER TO MAR) ADMINISTERED TO PT. COMPLIANT WITH TREATMENT, PLEASANT, CONVERSES APPROPRIATELY WITH RN. VSS, REST PROMOTED, ABLE TO REMAIN ON ROOM AIR WITH SATS GREATER THAN 92% DENIES CHEST PAIN AND SOB. FAMILY ( AND SON) VISITING, FRIENDS VISITING, NO CONCERNS AT THIS TIME. PT PLEASANT OVERALL, DENIES ANY PHYSICAL PAIN WHEN ASKED. PO FLUIDS ENCOURAGED, OVERALL PLEASANT PATIENT.
[2024-07-29 04:42] VITALS: BP 114/70
[2024-07-29 08:12] VITALS: BP 129/78
--- NOTE | 2024-07-29 09:56 | NUR ---
FLUID RESTRICTION UPDATE: PT NOT BEING COMPLIANT WITH FLUID RESTRICTION. PT EDUCATED ON WHY HE IS ON A FLUID RESTRICTION BUT IS NOT RECEPTIVE. PT GETTING UP TO THE BATHROOM AND FILLING HIS CUP UP IN THE SINK. PT STATING THAT HE WANTS TO GO HOME. WAITING FOR PROVIDER TO SEE PT.
[2024-07-29] MEDS ORDERED: Lactobacil 2-S.Thermo-Bifido 1 1 Cap PO SCH (10:00)
[2024-07-29 12:01] VITALS: BP 125/80
[2024-07-29 16:26] VITALS: BP 126/80
--- NOTE | 2024-07-29 17:59 | NUR ---
SHIFT SUMMERY/ TRANSFER TO MEDICAL FLOOR: NO ACUTE CHANGES HAPPENED DURING THIS SHIFT. PT REMAINED A&OX4, ALTHOUGH SLEPT MOST OF THE SHIFT. DENIED ANY CP AND REPORTED SOME SOB THAT WENT AWAY PROMPTLY. NO SIGNIFICANT EVENTS HAPPENED DURING THIS SHIFT. REPORT WAS CALLED TO XIMENA STAHL TO ASSUME CARE OF PT. PT TRANSPORTED TO ROOM 354 VIA WHEELCHAIR BY [employer]. ALL BELONGINGS WERE COLLECTED AND TAKEN WITH PT.
--- NOTE | 2024-07-29 18:20 | NUR ---
TRANSFER TO 354 REPORT RECEIVED. PT TRANSFERED VIA W/C TO RM 354. PT HAD FAMILY AT BEDSIDE. HAD A LONG TALK ABOUT DIET, MEDICATIONS, ACTIVITY AND BEING RUDE TO STAFF. FAMILY SUPPORTIVE. NO OUT SIDE FOOD. CARE ONGOING.
[2024-07-29 19:42] VITALS: BP 147/130
[2024-07-29 20:11] VITALS: BP 124/86
[2024-07-29] MEDS ORDERED: NS 250 ML IV PRN (23:30)
[2024-07-30 02:17] VITALS: BP 128/88
--- NOTE | 2024-07-30 03:14 | NUR ---
SHIFT SUMMARY @0215 PT REPORTS UPPER RIGHT CHEST PAIN RADIATING TO NECK. "NEVER HAD A PAIN LIKE THIS BEFORE" PER PT STATEMENT. VS 128/88, P. 71, O2 96% @4LITERS. PT COUGHING FOR SHORT PERIOD, NON PRODUCTIVE. PT RATES PAIN 8/10. PRN OXYCODONE 5MG ADMINISTERED AND PT REPORTS PAIN DECREASING TO 6.5/10. THIS SUPERSONIC ENGINEER CONTACTED DR. RUSSELL, ONE TIME EKG ORDER GIVEN. DR. RUSSELL STATED WILL BE COMING OVER SOON TO THE MEDICAL FLOOR AND TO SEE THE PT. AWAITING FOR DR. RUSSELL. MONITORING AND CONTINUING CARE. PT'S SO AND SON BY THE BEDSIDE RESTING. PT RESTING AT THIS TIME. BRIDGE GAME DIRECTOR RAFAT BY THE BEDSIDE. BED AT THE LOWEST POSITION, CALL LIGHT W/I REACH. @HS TRAMADOL FOR CHRONIC KNEE PAIN ADMINISTERED ORDERED. PRN ATIVAN IV FOR ANXIETY. PT REPORTS EFFECTIVE. @HS PT REPORTS NO CONCERNS OR NEEDS. FAMILY AND FRIENDS BY THE BEDSIDE.
--- NOTE | 2024-07-30 03:25 | NUR ---
NEW T-ORDER WAS RECEIVED FROM THE ON-CALL HOSPITALIST DR. RUSSELL: EKG ONCE. ENTERED TO [facility].
[2024-07-30] MEDS ORDERED: OxyCODONE HCL 5 MG TAB PO PRN (04:45)
[2024-07-30 05:08] LABS: BASOPHILS ABSOLUTE AUTO 0.06 K/mm3 (0.00-0.23); BASOPHILS PERCENT AUTO 1 % (0-2); EOSINOPHILS ABSOLUTE AUTO 0.21 K/mm3 (0.00-0.68); EOSINOPHILS PERCENT AUTO 2 % (0-6); Hematocrit 42.5 % (37.0-53.0); Hemoglobin 14.6 g/dL (13.5-17.5); IMMATURE GRAN ABSOLUTE AUTO 0.15 K/mm3 (0.00-0.10); IMMATURE GRAN PERCENT AUTO 1 % (0-1); LYMPHOCYTES ABSOLUTE AUTO 2.61 K/mm3 (0.84-5.20); LYMPHOCYTES PERCENT AUTO 23 % (21-46); MONOCYTES PERCENT AUTO 12 % (4-13); Mean Corpuscular HGB 31.3 pg (26.0-34.0); Mean Corpuscular HGB Conc 34.4 g/dL (31.5-36.5); Mean Corpuscular Volume 91 fL (80-100); Mean Platelet Volume 10.1 fL (9.1-12.4); NEUTROPHILS PERCENT AUTO 61 % (41-73); Platelet Count 271 K/mm3 (150-400); RDW Coefficient Variation 13.3 % (11.7-14.2); Red Blood Cell Count 4.66 M/mm3 (4.30-5.90); White Blood Cell Count 11.43 K/mm3 (4.00-11.30)
[2024-07-30 05:44] LABS: Bun/Creatinine Ratio 20.4 (12.0-20.0); Calcium, Blood 8.4 mg/dL (8.5-10.1); Creatinine, Blood 0.93 mg/dL (0.60-1.20); Magnesium, Blood 2.3 mg/dL (1.6-2.4); Potassium, Blood 3.9 mmol/L (3.5-5.5)
[2024-07-30 07:46] VITALS: BP 109/76
--- NOTE | 2024-07-30 07:55 | NUR ---
DR GIOVANY FIGUEROA CALLED D/T PT DELAYED CAP REFILL, CENTRAL CYANOSIS. HIS RUE IS DARK, NUMB AND DELAYED CAP REFILL. UNABLE TO PALPATE A RADIAL PULSE. STAT UE ULTRASOUND ASKED FOR. CARE ONGOING.
[2024-07-30 15:17] VITALS: BP 110/71
--- NOTE | 2024-07-30 18:25 | NUR ---
SHIFT ASSESSMENT PT AWAKE AND ALERT. SR PER TELEMETRY. AMBULATED IN LEMUS SBA. GAIT SLOW STEADY. MILDLY BREATHLESS WHILE WALKING. SEE NOTES. PT AGREEABLE TO STAY ANOTHER NIGHT WHILE HIS MEDICAL TEAM ARRANGE OUTPT ANTIBIOTIC THERAPY. GOOD APPETITE. PT HAS REQUESTED ATIVAN FOR ANXIETY TODAY. HE SLEEP BUT AWAKENS EASILY. FAMILY AT BEDSIDE. PT VOICING HOW SCARED AND OVERWHELMED HE IS. HE FEELS LIKE HE IS GOING TO . OFFERED CHAPLAINS HE DECLINED. CARE ONGOING.
[2024-07-30 20:12] VITALS: BP 127/71
[2024-07-30 23:46] VITALS: BP 120/73
[2024-07-31 04:11] VITALS: BP 106/79
[2024-07-31 05:43] LABS: BASOPHILS ABSOLUTE AUTO 0.09 K/mm3 (0.00-0.23); BASOPHILS PERCENT AUTO 1 % (0-2); EOSINOPHILS ABSOLUTE AUTO 0.29 K/mm3 (0.00-0.68); EOSINOPHILS PERCENT AUTO 3 % (0-6); Hematocrit 42.6 % (37.0-53.0); Hemoglobin 14.9 g/dL (13.5-17.5); IMMATURE GRAN ABSOLUTE AUTO 0.26 K/mm3 (0.00-0.10); IMMATURE GRAN PERCENT AUTO 2 % (0-1); LYMPHOCYTES ABSOLUTE AUTO 2.48 K/mm3 (0.84-5.20); LYMPHOCYTES PERCENT AUTO 22 % (21-46); MONOCYTES ABSOLUTE AUTO 1.03 K/mm3 (0.16-1.47); MONOCYTES PERCENT AUTO 9 % (4-13); Mean Corpuscular HGB 31.3 pg (26.0-34.0); Mean Corpuscular Volume 90 fL (80-100); Mean Platelet Volume 9.7 fL (9.1-12.4); NEUTROPHILS PERCENT AUTO 63 % (41-73); Platelet Count 333 K/mm3 (150-400); RDW Coefficient Variation 13.2 % (11.7-14.2); RDW Standard Deviation 43.5 fL (35.1-46.3); Red Blood Cell Count 4.76 M/mm3 (4.30-5.90); White Blood Cell Count 11.35 K/mm3 (4.00-11.30)
[2024-07-31 06:11] LABS: Bun/Creatinine Ratio 16.5 (12.0-20.0); Calcium, Blood 8.6 mg/dL (8.5-10.1); Creatinine, Blood 0.97 mg/dL (0.60-1.20); Potassium, Blood 3.9 mmol/L (3.5-5.5)
[2024-07-31 07:23] VITALS: BP 96/58
[2024-07-31 08:40] VITALS: BP 123/83
[2024-07-31] MEDS ORDERED: CefTRIAXone Sodium 2,000 MG in NS 100 ML IV ONE (12:50)
[2024-07-31] MEDS ORDERED: Acetaminophen650 M1 PO (13:00)
[2024-07-31] MEDS ORDERED: ASPI81CH PO (13:00)
[2024-07-31] MEDS ORDERED: ATORVASTATIN CA80 M1 PO (13:01)
[2024-07-31] MEDS ORDERED: FAMO20 PO (13:01)
[2024-07-31] MEDS ORDERED: JARDIANCE10 MG PO (13:01)
[2024-07-31] MEDS ORDERED: FOLI1 PO (13:02)
[2024-07-31] MEDS ORDERED: FURO20 PO (13:02)
[2024-07-31] MEDS ORDERED: LOSA25 PO (13:05)
[2024-07-31] MEDS ORDERED: [UNRECOGNIZED DRUG - OTHER] TOP (13:05)
[2024-07-31] MEDS ORDERED: METO25 PO (13:06)
[2024-07-31] MEDS ORDERED: XARELTO20 MG PO ×2 (13:07→13:08)
[2024-07-31] MEDS ORDERED: PROBIOTIC1 EA13 PO (13:08)
--- NOTE | 2024-07-31 16:51 | NUR ---
1540 DISCHARGED TO HOME, PT AMBULATED PER REQUEST. PT VERBALIZES UNDERSTANDING OF FOLLOW UP FOR IV ANTIBIOTICS
== END 2024-07-31 15:35 | disposition home or self-care (01) | DRG 64 ==
LOC: ER 13:23 → ERHOLD 13:24 → PCU 13:24 → MEDS 07-23 14:51 → PCU 07-23 14:51 → MEDS 07-29 17:14
PROVIDERS: Emergency Medicine; Internal Medicine; Nurse Practitioner Acute Care; Physician Assistant; Student in an Organized Health Care Education/Training Program; ADMIT Internal Medicine
DX: I63.531 Cerebral infarction due to unspecified occlusion or stenosis of right posterior cerebral artery (principal); I21.A1 Myocardial infarction type 2; I26.99 Other pulmonary embolism without acute cor pulmonale; I50.23 Acute on chronic systolic (congestive) heart failure; I82.493 Acute embolism and thrombosis of other specified deep vein of lower extremity, bilateral; E87.1 Hypo-osmolality and hyponatremia; F10.239 Alcohol dependence with withdrawal, unspecified; I27.82 Chronic pulmonary embolism; L03.116 Cellulitis of left lower limb; M00.072 Staphylococcal arthritis, left ankle and foot; F17.210 Nicotine dependence, cigarettes, uncomplicated; F15.10 Other stimulant abuse, uncomplicated; R74.01 Elevation of levels of liver transaminase levels; J44.89 Other specified chronic obstructive pulmonary disease; H54.62 Unqualified visual loss, left eye, normal vision right eye; I27.20 Pulmonary hypertension, unspecified; E87.6 Hypokalemia; B95.61 Methicillin susceptible Staphylococcus aureus infection as the cause of diseases classified elsewhere; I07.1 Rheumatic tricuspid insufficiency; F41.1 Generalized anxiety disorder; Z79.1 Long term (current) use of non-steroidal anti-inflammatories (NSAID); Z79.899 Other long term (current) drug therapy; Z88.5 Allergy status to narcotic agent; Z98.890 Other specified postprocedural states
CPT/HCPCS: 36415; 70450; 70496; 71046; 71260; 73700; 76882; 80048; 80053; 80061; 80320; 81240; 83090; 83735; 83880; 84443; 84484; 85025; 85027; 85300; 85303; 85306; 85307; 85379; 85520; 85525; 85610; 85613; 85651; 85670; 85730; 86038; 86140; 86146; 86147; 87040; 87077; 87147; 87186; 93005; 93010; 93306; 93880; 93931; 93970; 94762; 96374-59; 99285-25; A9270; G0378; J0690; J0696; J1644; J1940; J2060; J2405; J3370; J7040; J7050; Q9967

== ENCOUNTER 2024-08-02 03:01 | Day surgery (SDC) | payer OTHER ==
[~2024-08-02 03:01] MED LIST changes: +ASPI81CH PO; +ATORVASTATIN CA80 M1 PO; +Acetaminophen650 M1 PO; +CefTRIAXone Sodium 2,000 MG in NS 100 ML IV SCH; +FOLI1 PO; +FURO20 PO; +JARDIANCE10 MG PO; +LOSA25 PO; +METO25 PO; +PROBIOTIC1 EA13 PO; +XARELTO20 MG PO; +[UNRECOGNIZED DRUG - OTHER] TOP
[2024-08-02 14:45] VITALS: BP 134/75
== END 2024-08-02 15:34 | disposition home or self-care (01) ==
LOC: ATC 03:01
DX: R78.81 Bacteremia (principal); B95.61 Methicillin susceptible Staphylococcus aureus infection as the cause of diseases classified elsewhere; F17.210 Nicotine dependence, cigarettes, uncomplicated; Z88.5 Allergy status to narcotic agent
CPT/HCPCS: 96365; J0696

== ENCOUNTER 2024-08-03 04:13 | Day surgery (SDC) | payer OTHER ==
[2024-08-03 10:51] VITALS: BP 138/84
== END 2024-08-03 11:38 | disposition home or self-care (01) ==
LOC: ATC 04:13
DX: R78.81 Bacteremia (principal); B95.61 Methicillin susceptible Staphylococcus aureus infection as the cause of diseases classified elsewhere; F17.210 Nicotine dependence, cigarettes, uncomplicated; Z88.5 Allergy status to narcotic agent
CPT/HCPCS: 96365; J0696

== ENCOUNTER 2024-08-04 00:31 | Day surgery (SDC) | payer OTHER ==
[~2024-08-04 00:31] MED LIST changes: -CefTRIAXone Sodium 2,000 MG in NS 100 ML IV SCH
[2024-08-04] MEDS ORDERED: CefTRIAXone Sodium 2,000 MG in NS 100 ML IV SCH (01:00)
[2024-08-04 10:45] VITALS: BP 143/80
== END 2024-08-04 11:05 | disposition home or self-care (01) ==
LOC: ATC 00:31
DX: R78.81 Bacteremia (principal); B95.61 Methicillin susceptible Staphylococcus aureus infection as the cause of diseases classified elsewhere; Z88.5 Allergy status to narcotic agent; F17.210 Nicotine dependence, cigarettes, uncomplicated
CPT/HCPCS: 96365; J0696

== ENCOUNTER 2024-08-05 11:24 | Day surgery (SDC) | payer OTHER ==
[~2024-08-05 11:24] MED LIST changes: +CefTRIAXone Sodium 2,000 MG in NS 100 ML IV SCH
[2024-08-05 11:32] VITALS: BP 142/75
== END 2024-08-05 11:54 | disposition home or self-care (01) ==
LOC: ATC 11:24
DX: R78.81 Bacteremia (principal); B95.61 Methicillin susceptible Staphylococcus aureus infection as the cause of diseases classified elsewhere; F17.210 Nicotine dependence, cigarettes, uncomplicated; R74.01 Elevation of levels of liver transaminase levels; Z86.711 Personal history of pulmonary embolism; Z88.5 Allergy status to narcotic agent
CPT/HCPCS: 96365; J0696

== ENCOUNTER 2024-08-06 05:11 | Day surgery (SDC) | payer OTHER ==
[~2024-08-06 05:11] MED LIST changes: -CefTRIAXone Sodium 2,000 MG in NS 100 ML IV SCH
[2024-08-06] MEDS ORDERED: CefTRIAXone Sodium 2,000 MG in NS 100 ML IV SCH (06:00)
[2024-08-06 11:05] VITALS: BP 153/88
== END 2024-08-06 11:33 | disposition home or self-care (01) ==
LOC: ATC 05:11
DX: R78.81 Bacteremia (principal); B95.61 Methicillin susceptible Staphylococcus aureus infection as the cause of diseases classified elsewhere; F17.210 Nicotine dependence, cigarettes, uncomplicated; Z88.5 Allergy status to narcotic agent
CPT/HCPCS: 96365; J0696

== ENCOUNTER 2024-08-07 02:00 | Day surgery (SDC) | payer OTHER ==
[~2024-08-07 02:00] MED LIST changes: +CefTRIAXone Sodium 2,000 MG in NS 100 ML IV SCH
[2024-08-08] MEDS ORDERED: NICO2 PO (12:05)
[2024-08-08] MEDS ORDERED: NICO21TP TOP (12:06)
[2024-08-08] MEDS ORDERED: ANXIETY MED (12:07)
== END 2024-08-07 12:01 | disposition home or self-care (01) ==
LOC: ATC 02:00
DX: R78.81 Bacteremia (principal); B95.61 Methicillin susceptible Staphylococcus aureus infection as the cause of diseases classified elsewhere; F17.210 Nicotine dependence, cigarettes, uncomplicated; Z88.5 Allergy status to narcotic agent
CPT/HCPCS: 96365; J0696

== ENCOUNTER 2024-08-08 02:58 | Day surgery (SDC) | payer OTHER ==
[~2024-08-08 02:58] MED LIST changes: -CefTRIAXone Sodium 2,000 MG in NS 100 ML IV SCH
[2024-08-08] MEDS ORDERED: CefTRIAXone Sodium 2,000 MG in NS 100 ML IV SCH (06:00)
[2024-08-08 10:42] VITALS: BP 141/90
[2024-08-08] MEDS ORDERED: NICO2 PO (12:05)
[2024-08-08] MEDS ORDERED: NICO21TP TOP (12:06)
[2024-08-08] MEDS ORDERED: ANXIETY MED (12:07)
== END 2024-08-08 11:08 | disposition home or self-care (01) ==
LOC: ATC 02:58
DX: R78.81 Bacteremia (principal); B95.61 Methicillin susceptible Staphylococcus aureus infection as the cause of diseases classified elsewhere; R74.01 Elevation of levels of liver transaminase levels; F17.210 Nicotine dependence, cigarettes, uncomplicated; Z88.5 Allergy status to narcotic agent
CPT/HCPCS: 96365; J0696

== ENCOUNTER 2024-08-09 03:18 | Day surgery (SDC) | payer OTHER ==
[~2024-08-09 03:18] MED LIST changes: +ANXIETY MED; +NICO2 PO; +NICO21TP TOP
[2024-08-09] MEDS ORDERED: CefTRIAXone Sodium 2,000 MG in NS 100 ML IV SCH (06:00)
[2024-08-09 11:37] VITALS: BP 139/101
== END 2024-08-09 12:03 | disposition home or self-care (01) ==
LOC: ATC 03:18
DX: R78.81 Bacteremia (principal); B95.61 Methicillin susceptible Staphylococcus aureus infection as the cause of diseases classified elsewhere; F17.210 Nicotine dependence, cigarettes, uncomplicated; Z88.5 Allergy status to narcotic agent
CPT/HCPCS: 96365; J0696